=== PATIENT | female | born 1985 | race Caucasian/White ===

== ENCOUNTER 2019-07-09 22:13 | Emergency (ER) | payer BC ==
[~2019-07-09] VITALS: Ht 167.6 cm; Wt 67.1 kg
[2019-07-09 22:15] VITALS: BP 120/74
[2019-07-09 23:23] LABS: HEMATOCRIT 42.9 % (37.0-47.0); HEMOGLOBIN 14.5 gm/dL (12.0-15.0); MCH 31.4 pg (26.0-34.0); MCHC 33.8 g/dL (28.0-37.0); MCV 92.9 fL (80.0-100.0); MPV 9.2 fl. (7.2-11.1); NUCLEATED RBCS 0 /100WBC; PLATELET COUNT* 186 thou/uL (150-400); RBC 4.62 mil/uL (4.20-5.00); RDW-CV 13.3 % (10.5-14.5); WBC 8.9 thou/uL (4.0-11.0)
[2019-07-09 23:33] LABS: CREATININE 0.7 mg/dL (0.6-1.3); POTASSIUM 3.9 mmol/L (3.5-5.1)
[2019-07-09 23:35] LABS: PROTIME 10.3 Seconds (9.20-11.50)
[2019-07-09 23:44] LABS: ALBUMIN 3.7 g/dL (3.4-5.0); MAGNESIUM 1.5 mg/dL (1.8-2.4); TOTAL BILIRUBIN 1.5 mg/dL (<0.1-1.0); TOTAL PROTEIN 6.8 g/dL (6.4-8.2)
[2019-07-10 00:02] LABS: ABSOLUTE EOSINOPHILS 0.2 thou/uL (0.0-0.7); ABSOLUTE LYMPHOCYTES 0.4 thou/uL (0.8-5.3); ABSOLUTE MONOCYTES 0.1 thou/uL (0.0-1.2); ABSOLUTE NEUTROPHILS 8.3 thou/uL (1.6-8.1); PLATELET ESTIMATE ADEQUATE
[2019-07-10] MEDS ORDERED: ZOFRAN ODT4 MG PO (03:59)
[2019-07-10 04:11] VITALS: BP 99/62
--- NOTE | 2019-07-12 12:03 | EKG ---
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: : 1985 Requested By: Michelle Palmer Order Number: [id number] MD: Vernon Okeefe Measurements Intervals [place] Rate: 82 P: 73 AK: 113 QRS: 92 QRSD: 103 T: 38 QT: 384 QTc: 449 Interpretive Statements Sinus rhythm Ventricular premature complex Borderline short AK interval Left atrial enlargement Minor IVCD right No previous ECG available for comparison Electronically Signed On 07-12-2019 12:02:46 DIRECTOR DANCE by Vernon Okeefe [email or web address] <ELECTRONICALLY SIGNED> By: Vernon Okeefe MD, [facility] 07/12/19 1202 30 30 Vernon Okeefe MD, FACC /EPI
== END 2019-07-10 04:11 | disposition home or self-care (01) ==
LOC: M.ERS 22:13 → M.TBA-ER 07-10 03:35 → M.ERS 07-10 03:35 → M.TBA-ER 07-10 04:11
PROVIDERS: Emergency Medicine
DX: R11.2 Nausea with vomiting, unspecified (principal); R10.13 Epigastric pain; F17.200 Nicotine dependence, unspecified, uncomplicated; Z88.0 Allergy status to penicillin